=== PATIENT | male | born 2000 ===

== ENCOUNTER 2020-10-31 16:39 | Outpatient (REF) | payer OTHER, SELFPAY ==
[2020-11-02 09:52] LABS: Syphilis Serology (RPR) Negative (Negative)
[2020-11-02 10:15] LABS: Hepatitis B Surface Ag Negative (Negative)
[2020-11-02 11:19] LABS: HIV-1/2 Ag & Ab Screen Negative (Negative)
[2020-11-02 11:20] LABS: Hepatitis C Ab w Rflx HCV PCR Negative (Negative)
[2020-11-02 15:26] LABS: Chlamydia Result Negative (Negative); GC Result Negative (Negative)
== END 2020-10-31 16:40 | disposition home or self-care (01) ==
LOC: NCHCN 16:39
PROVIDERS: Visit Provider Physician Assistant
DX: Z11.3 Encounter for screening for infections with a predominantly sexual mode of transmission (principal)
CPT/HCPCS: 86803; 87340; 87389; 87491; 87591; 86592

== ENCOUNTER 2024-05-14 19:43 | Outpatient (REF) | payer OTHER, SELFPAY ==
[2024-05-14 19:38] LABS: Abs Immature Grans 0.02 10^3/uL (0.0-0.06); Absolute Basophil Count 0.03 10^3/uL (0.0-0.2); Absolute Eosinophil Count 0.09 10^3/uL (0.0-0.7); Absolute Lymphocyte Count 1.88 10^3/uL (1.2-3.4); Absolute Monocyte Count 0.62 10^3/uL (0.1-0.8); Absolute Neutrophil Count 5.68 10^3/uL (1.2-6.7); Basophils % 0.4 %; Eosinophils % 1.1 %; HCT 50.4 % (40.0-50.0); HGB 16.1 g/dL (13.5-17.5); Immature Grans % 0.2 %; Lymphocytes % 22.6 %; MCH 29.9 pg (27.0-33.0); MCHC 31.9 % (32.0-36.0); MCV 94 fL (80-95); MPV 10.4 fL (8.0-11.0); Monocytes % 7.5 %; Neutrophils % 68.2 %; Platelet Count 337 10^3/uL (130-400); RBC 5.39 10^6/uL (4.36-5.78); RDW-SD 41.6 fL; WBC 8.32 10^3/uL (4.4-10.8)
[2024-05-14 20:06] LABS: ALT 63 U/L (16-63); AST 34 U/L (15-37); Albumin 4.4 g/dL (3.4-5.0); Alkaline Phosphatase 89 U/L (46-116); Anion Gap 7.7 mmol/L (3-11); BUN 14 mg/dL (7-18); Bilirubin, Total 0.5 mg/dL (0.2-1.0); CO2 27.3 mmol/L (21.0-32.0); CREATININE 0.9 mg/dL (0.70-1.30); Calcium 9.7 mg/dL (8.5-10.1); Chloride 105 mmol/L (98-107); Estimated GFR 122.31 (mL/min/1.73m2); Folate 15.6 ng/mL (8.6-20.0); Glucose 92 mg/dL (74-106); Magnesium 2.1 mg/dL; Potassium 4.1 mmol/L (3.5-5.1); Sodium 140 mmol/L (136-145); TSH (W/Ref FT4) 1.96 uIU/mL (0.36-3.74); Total Protein 7.8 g/dL (6.4-8.2); Vitamin B12 587 pg/mL (193-986)
== END 2024-05-14 19:44 | disposition home or self-care (01) ==
LOC: NCHCN 19:43
PROVIDERS: Visit Provider Physician Assistant
DX: R20.0 Anesthesia of skin (principal)
CPT/HCPCS: 80053; 82607; 82746; 83735; 84443; 85025